=== PATIENT | male | born 1955 | race Caucasian/White ===

== ENCOUNTER 2024-04-06 08:32 | Day surgery (SDC) | payer MEDICARE, OTHER ==
[~2024-04-06] VITALS: Ht 172.7 cm; Wt 90.0 kg
--- NOTE | ~2024-04-06 | OR ---
[facility] [place] [facility] [address], [place] [address] Draft DATE OF OPERATION: 04/06/2024 SURGEON: Jun Joseph MD PREOPERATIVE DIAGNOSIS: Medial meniscus tear, right knee. POSTOPERATIVE DIAGNOSIS: Medial meniscus tear, right knee. PROCEDURE: Extensive chondrocalcinosis, right knee. PROCEDURE PERFORMED: Right knee arthroscopy with debridement of medial meniscus. CODING SPEC: Zee Gunter PA-C. Zee was present and critical for all portions of procedure. ANESTHESIA: General. BLOOD LOSS: Minimal. BRIEF HISTORY: Kayla is a 68-year-old gentleman with pain and locking in his knee. MRI was consistent with significant medial meniscus tear. Risks, benefits, and alternatives were discussed with him and he elected to proceed. Once consent was obtained, he was taken to the operating room after adequate anesthesia. He was placed on the operating room table. All downside pressure points were well padded. The left leg was flexed, abducted and externally rotated on a well-padded leg acosta. The right was placed in well-padded proximal thigh leg acosta. The leg was then prepped and draped in a standard sterile fashion. The portals were injected with 0.25% Marcaine with epinephrine. Standard inferolateral and superolateral portals were made and the scope was introduced into the knee. ARTHROSCOPIC FINDINGS,: Moderate synovitis was noted throughout the knee. There was extensive heavy PATIENT NAME: KAYLA RIOS OPERATIVE REPORT DATE OF : 53 REPORT #: [id number] PHYSICIAN: JUN JOSEPH MD PCP: YANN SALDIVAR MD REPORT IS CONFIDENTIAL AND NOT TO BE RELEASED WITHOUT AUTHORIZATION [facility] [place] [facility] [address], [place] [address] Draft chondrocalcinosis investing all of the cartilaginous surfaces as well as most of the synovium. The patella showed grade 3 to small area of grade 4, chondromalacia of the trochlea showed grade 2. Medial and lateral gutters were clear. Lateral compartment was clear. ACL was intact, but again with heavy chondrocalcinosis. The medial compartment showed grade 2 with one grade 4 flap of cartilage in the midportion of the medial femoral condyle. The tibia showed grade 2 chondromalacia. There was an extensive complex tear of the medial meniscus from the posterior horn all the way around to the mid body. DESCRIPTION OF PROCEDURE: Straight and curved biters were used to trim the meniscus tear back to a stable rim. This was then smoothed using shaver and all debris was evacuated. The small flap on the medial femoral condyle was also debrided. The scope was withdrawn and portals were closed with 3-0 nylon. The knee was injected with 60 mg Toradol at the end of the case. The wounds were then dressed with Adaptic, ABD, and Jose wrap. He tolerated the procedure well. All sponge, needle, and instrument counts were correct. Jun Joseph MD BA/MODL /[id number] Copies: ~ PATIENT NAME: KAYLA RIOS OPERATIVE REPORT DATE OF : 53 REPORT #: [id number] PHYSICIAN: JUN JOSEPH MD PCP: YANN SALDIVAR MD REPORT IS CONFIDENTIAL AND NOT TO BE RELEASED WITHOUT AUTHORIZATION
[~2024-04-06 08:32] MED LIST: ATORVASTATIN CA10 MG PO; CEFAZOLIN SODIUM 2 GM/20 ML SYR IV SCH; CINNAMON500 MG PO; DEXAMETHASONE SOD PHOS 4 MG/ML VIAL ONE; DICLOFENAC SODI50 MG PO; ESSENTIAL DAIL1 EACH PO; FAMOTIDINE 20 MG/ 2 ML VIAL ONE; FISH OIL300 MG PO; FLOMAX0.4 MG PO; GINGER250 MG PO; HYDROCODON-ACE1 EA10 PO; IBLOOD GLUCOSE TEST STRIP 1 EA TEST VI PRN; KETOROLAC TROMETHAMINE 30 MG/ML VIAL ONE; LACTATED RINGER'S 1,000 ML IV ONE; LACTATED RINGER'S 1,000 ML IV SCH; LIDOCAINE HCL 1% 5 ML SDV INJ ONE; LITHATE20 MG PO; METOCLOPRAMIDE HCL 10 MG/2 ML SDV IV PRN; METOCLOPRAMIDE HCL 10 MG/2 ML SDV ONE; MIDAZOLAM HCL 2 MG/2 ML VIAL ONE; MORPHINE SULFATE 10 MG/ML VIAL IV PRN; NALOXONE HCL 0.4 MG SYR IV PRN; NORCO 5-325 TA1 EACH PO; PROCHLORPERAZINE EDISYLATE 10 MG/2 ML VIAL IV PRN; PROZAC40 MG PO; TOPAMAX25 MG PO; TRANEXAMIC ACID 2,000 MG in SODIUM CHLORIDE 0.9% 100 ML IV SCH; TURMERIC500 M2 PO; VITAMIN B COMP1 EAC1; VITAMIN B-1250 MCG PO; VITAMIN D325 MC2 PO; VITAMIN D5000 UNIT PO; VOLTAREN ARTHRI20 GM; ZINC50 MG; droPERidol 5 MG/2 ML VIAL IV PRN; fentaNYL citrate 100 MCG/2 ML VIAL ONE; fentaNYL citrate 50 MCG/ML SDV IV PRN; ondansetron HCL 4 MG/2 ML VIAL IV PRN; ondansetron HCL 4 MG/2 ML VIAL ONE; propofoL 200 MG/20 ML VIAL ONE
[2024-04-06 08:54] VITALS: BP 122/61
[2024-04-06] MEDS ORDERED: BREYNA 80-4.510.3 GM IH (08:58)
[2024-04-06] MEDS ORDERED: PHENTERMINE HCL30 MG PO (08:59)
[2024-04-06] MEDS ORDERED: KETOROLAC TROMETHAMINE 30 MG/ML VIAL ONE (09:22)
[2024-04-06] MEDS ORDERED: HYDROCODONE/ACETA 5/325 TAB PO PRN (10:15)
[2024-04-06] MEDS ORDERED: CELECOXIB200 MG PO (10:29)
[2024-04-06] MEDS ORDERED: HYDROCODON-ACE1 EA10 PO (10:29)
--- NOTE | 2024-04-06 10:38 | NUR ---
04/06/24 Susanna Ta 1028 PT TO PACU SLEEPING ORAL AIRWAY IN PLACE. O2 VIA MASK FOGGING NOTED IN MASK.
--- NOTE | 2024-04-06 10:55 | NUR ---
JANIS 1055-PT BACK TO ROOM FROM PACU ON RA. RECEIVED REPORT FROM FLAVIO ZEPEDA. DENIES PAIN, ICE PACK IN PLACE ON LEFT KNEE. PROVIDED PT WITH CRACKERS AND WATER. NO OTHER NEEDS AT THIS TIME. AT BEDSIDE. CALL LIGHT WITHIN REACH.
[2024-04-06 10:56] VITALS: BP 110/60
[2024-04-06 11:57] VITALS: BP 115/60
--- NOTE | 2024-04-06 12:00 | NUR ---
IN PT ROOM FOR PAIN ASSESSMENT. PT REPORTS PAIN IS 1/10 AT THIS TIME AND TOLERABLE. PT STATES NO NEED FOR PRN PAIN MED AT THIS TIME. PT STATES NEED TO URINE VOID. PT UP TO BEDSIDE AND REPORTS NO DIZZINESS/NAUSEA. PT AMBULATES TO RESTROOM W/THIS RN STANDBY ASSIST FOR URINE VOID OF 225 ML. PT BACK TO BED AND GETTING DRESSED AT THIS TIME W/ ASSISTANCE. CALL LIGHT WITHIN REACH.
--- NOTE | 2024-04-06 12:25 | NUR ---
IN PT ROOM FOR DISCHARGE EDUCATION. PT REPORTS STATES VERBAL UNDERSTANDING AND NO FURTHER QUESTIONS AT THIS TIME. PT OFF OF UNIT VIA WC TO PASSENGER SIDE OF VEHICLE. ALL BELONGINGS IN PT POSSESSION, FRESH ICE PACK PROVIDED. PT REPORTS NO FURTHER QUESTIONS OR NEEDS AT THIS TIME.
[2024-04-06] MEDS ORDERED: CELECOXIB 200 MG CAP PO SCH (17:00)
== END 2024-04-06 12:30 | disposition home or self-care (01) ==
LOC: DS 08:32
PROVIDERS: ATTEND Specialist
PROC: 0SBC4ZZ Excision of Right Knee Joint, Percutaneous Endoscopic Approach (ICD-10-PCS; principal; 2024-04-06 10:45)
DX: S83.231A Complex tear of medial meniscus, current injury, right knee, initial encounter (principal); M11.261 Other chondrocalcinosis, right knee; M65.9 Synovitis and tenosynovitis, unspecified; E78.00 Pure hypercholesterolemia, unspecified; Z79.1 Long term (current) use of non-steroidal anti-inflammatories (NSAID); Z79.899 Other long term (current) drug therapy; Z90.49 Acquired absence of other specified parts of digestive tract; X58.XXXA Exposure to other specified factors, initial encounter
CPT/HCPCS: J0690; J1100; J1885; J2250; J2405; J2704; J2765; J3010; J7121

== ENCOUNTER 2025-02-15 05:30 | Day surgery (SDC) | payer MEDICARE, OTHER ==
[~2025-02-15] VITALS: Ht 172.7 cm; Wt 99.0 kg
[~2025-02-15 05:30] MED LIST changes: +ALLOPURINOL300 MG PO; +BREYNA 80-4.510.3 GM IH; -CEFAZOLIN SODIUM 2 GM/20 ML SYR IV SCH; +CELECOXIB200 MG PO; -DEXAMETHASONE SOD PHOS 4 MG/ML VIAL ONE; -FAMOTIDINE 20 MG/ 2 ML VIAL ONE; +GINGER ROOT550 MG PO; -GINGER250 MG PO; -IBLOOD GLUCOSE TEST STRIP 1 EA TEST VI PRN; -KETOROLAC TROMETHAMINE 30 MG/ML VIAL ONE; -LACTATED RINGER'S 1,000 ML IV ONE; -LIDOCAINE HCL 1% 5 ML SDV INJ ONE; -METOCLOPRAMIDE HCL 10 MG/2 ML SDV IV PRN; -METOCLOPRAMIDE HCL 10 MG/2 ML SDV ONE; -MIDAZOLAM HCL 2 MG/2 ML VIAL ONE; -MORPHINE SULFATE 10 MG/ML VIAL IV PRN; -NALOXONE HCL 0.4 MG SYR IV PRN; +PHENTERMINE HCL30 MG PO; -PROCHLORPERAZINE EDISYLATE 10 MG/2 ML VIAL IV PRN; +SUPER B-50 COM1 EAC2 PO; -TRANEXAMIC ACID 2,000 MG in SODIUM CHLORIDE 0.9% 100 ML IV SCH; -droPERidol 5 MG/2 ML VIAL IV PRN; -fentaNYL citrate 100 MCG/2 ML VIAL ONE; -fentaNYL citrate 50 MCG/ML SDV IV PRN; -ondansetron HCL 4 MG/2 ML VIAL IV PRN; -ondansetron HCL 4 MG/2 ML VIAL ONE; -propofoL 200 MG/20 ML VIAL ONE
[2025-02-15 06:02] VITALS: BP 120/63
[2025-02-15] MEDS ORDERED: SODIUM CHLORIDE 0.9% 500 ML IV ONE (06:18)
[2025-02-15] MEDS ORDERED: Ropivacaine HCl 20 MG/10 ML AMP ONE (06:18)
[2025-02-15] MEDS ORDERED: LIDOCAINE HCL 2% 5 ML SDV ONE (06:31)
[2025-02-15] MEDS ORDERED: fentaNYL citrate 100 MCG/2 ML VIAL ONE (06:31)
[2025-02-15] MEDS ORDERED: MIDAZOLAM HCL 2 MG/2 ML VIAL ONE (06:33)
[2025-02-15] MEDS ORDERED: Ropivacaine HCl 0.5% 30 ML VIAL ONE (06:34)
[2025-02-15] MEDS ORDERED: SODIUM CHLORIDE 0.9% 20 ML IV ONE (06:34)
[2025-02-15] MEDS ORDERED: DEXAMETHASONE SOD PHOS 10 MG/ML VIAL ONE (06:42)
[2025-02-15] MEDS ORDERED: TRANEXAMIC ACID IN NACL,ISO-OS 1,000 MG/100 ML PIGGYBACK IV SCH ×2 (07:00→10:16)
[2025-02-15] MEDS ORDERED: ROPIVACAINE IN 0.9% SOD CHL/PF 545 ML ELS.PMP.HR IRRIGATION SCH (07:00)
[2025-02-15] MEDS ORDERED: CEFAZOLIN SODIUM 2 GM/20 ML SYR IV SCH ×2 (07:00→15:00)
[2025-02-15] MEDS ORDERED: GABAPENTIN 600 MG TAB PO SCH (07:00)
[2025-02-15] MEDS ORDERED: INTRA-ARTICULAR ANALGESIC INJECTION XX SCH (07:00)
[2025-02-15] MEDS ORDERED: LIDOCAINE HCL 1% 5 ML SDV INJ ONE (07:00)
[2025-02-15] MEDS ORDERED: PANTOPRAZOLE SODIUM 40 MG TABEC PO SCH (07:00)
[2025-02-15] MEDS ORDERED: OXYCODONE HCL 5 MG TAB PO SCH (07:00)
[2025-02-15] MEDS ORDERED: IBLOOD GLUCOSE TEST STRIP 1 EA TEST VI PRN ×2 (07:00→07:45)
[2025-02-15] MEDS ORDERED: KETOROLAC TROMETHAMINE 30 MG/ML VIAL IV PRN (07:30)
[2025-02-15] MEDS ORDERED: OXYCODONE HCL 5 MG TAB PO PRN (07:30)
--- NOTE | 2025-02-15 07:34 | NUR ---
PT NOT AVAILABLE FOR VISIT. FAMILY MEMBER IN ROOM STATED NO IMMEDIATE NEEDS. NO OVERT SIGNS OF ANXIETY, OVERALL GOOD SPIRITS. URBAN REDEVELOPMENT SPECIALIST PROVIDED SUPPORTIVE PRESENCE, HOSPITALITY, PRAYER, FACILITATED INTERACTION WITH THERAPY ANIMAL. FAMILY MEMBER EXPRESSED GRATITUDE.
[2025-02-15] MEDS ORDERED: PROCHLORPERAZINE EDISYLATE 10 MG/2 ML VIAL IV PRN (07:45)
[2025-02-15] MEDS ORDERED: fentaNYL citrate 50 MCG/ML SDV IV PRN (07:45)
[2025-02-15] MEDS ORDERED: HYDROmorphone HCL 1 MG/ML SYR IV PRN (07:45)
[2025-02-15] MEDS ORDERED: NALOXONE HCL 0.4 MG SYR IV PRN (07:45)
[2025-02-15] MEDS ORDERED: LACTATED RINGER'S 1,000 ML IV ONE (08:31)
[2025-02-15] MEDS ORDERED: CEFUROXIME250 MG PO (08:37)
[2025-02-15] MEDS ORDERED: DICLOFENAC SODI75 MG PO (08:37)
[2025-02-15] MEDS ORDERED: ASPIRIN325 MG PO (08:37)
[2025-02-15] MEDS ORDERED: SENNA LAX8.6 MG PO (08:38)
[2025-02-15] MEDS ORDERED: OXYCODONE HCL5 M1 PO (08:38)
[2025-02-15] MEDS ORDERED: ACETAMINOPHEN500 MG PO (08:38)
[2025-02-15] MEDS ORDERED: GABAPENTIN300 MG PO (08:38)
--- NOTE | 2025-02-15 08:57 | NUR ---
02/15/25 0857 Joanna Oleary LE 0842: PT ARRIVES TO PACU. HE IS EASILY AROUSABLE TO STIMULI. HEEL PROTECTORS PUT IN PLACE BILATERALLY. LE 0850: PT AWAKES TO QUESTIONS AND TACTILE STIMULI. HE DENIES PAIN OR NAUSEA. CAN WIGGLE THE LEFT FOOT, NO MOVEMENT ON THE RIGHT. LE 0855: XRAY AT THE BEDSIDE. LE 0857: CRYO CUFF APPLIED TO RIGHT KNEE.
[2025-02-15] MEDS ORDERED: ASPIRIN 325 MG TAB PO SCH (09:00)
[2025-02-15 09:25] VITALS: BP 117/58
[2025-02-15] MEDS ORDERED: ACETAMINOPHEN 1,000 MG/100 ML VIAL IV ONE (10:00)
[2025-02-15] MEDS ORDERED: LORazepam 2 MG/ML VIAL IV ONE (10:30)
[2025-02-15 10:37] VITALS: BP 114/57
--- NOTE | 2025-02-15 10:44 | NUR ---
LE 0925-PT BACK TO ROOM FROM PACU ON RA. RECEIVED REPORT FROM JAYLYN ZEPEDA. PT IS AWAKE. RESP EVEN AND UNLABORED. RATES PAIN 1/10. DENIES NAUSEA. CRYO CUFF IN PLACE AND RUNNING. ON-Q PUMP SET AT 4. PT IS DRINKING WATER AND EATING CRACKERS AND PUDDING. IN ROOM. CALL LIGHT WITHIN REACH. JANIS 0941-PT RATES PAIN 4/10. PAIN MEDICATION GIVEN PER EMAR. CALL LIGHT WITHIN REACH.
--- NOTE | 2025-02-15 11:21 | NUR ---
LE 0952-PT STATES PAIN IS INCREASING. RATES PAIN NOW 11/28. PHONE CALL INTO OR 2. VO PER ARNULFO WEINBERG TURN ON-Q PUMP TO 6. LE 0956-PHONE CALL TO OR 2. VO PER YULISSA CARDOSO FOR IV TYLENOL. LE 1005-IV TYLENOL GIVEN PER EMAR.
--- NOTE | 2025-02-15 11:26 | NUR ---
LE 1017-PT STATES PAIN IS NOW A 6/10. ASKING QUESTIONS ABOUT HOW HE IS GOING TO WALK? ARNULFO WEINBERG IN ROOM WITH PT. VO ATIVAN 0.25MG NOW. LE 1034-ATIVAN GIVEN PER EMAR. FAMILY IN ROOM. CALL LIGHT WITHIN REACH.
--- NOTE | 2025-02-15 11:33 | NUR ---
LE 1037-PT LAYING IN BED. RESP EVEN AND UNLABORED. RATES PAIN 6/10. ON-Q PUMP SET AT 6. CRYO CUFF IN PLACE AND RUNNING. PT STATES WOULD LIKE TO TAKE A NAP. AT BEDSIDE. CALL LIGHT WITHIN REACH.
--- NOTE | 2025-02-15 11:39 | NUR ---
LE 1136-PT RESTING IN BED WITH EYES CLOSED. RESP EVEN AND UNLABORED. NO SIGNS OF DISTRESS. CALL LIGHT WITHIN REACH. AT BEDSIDE.
[2025-02-15 12:26] VITALS: BP 107/56
--- NOTE | 2025-02-15 12:35 | NUR ---
PT LAYING IN BED WITH EYES CLOSED. OPENS THEM TO VERBAL STIMULI. RESP EVEN AND UNLABORED. RATES PAIN 3/10 BUT WHEN MOVES KNEE RATES PAIN 8-9/10. WOULD LIKE PAIN MEDICATION. ON-Q PUMP SET AT 6. CRYO CUFF IN PLACE AND RUNNING. LUNCH ORDERED. NO OTHER NEEDS AT THIS TIME. CALL LIGHT WITHIN REACH.
--- NOTE | 2025-02-15 14:49 | NUR ---
JANIS 1335-PHYSICAL THERAPY IN WITH PT.
--- NOTE | 2025-02-15 14:50 | NUR ---
1440-PT BACK FROM PHYSICAL THERAPY.
[2025-02-15 14:53] VITALS: BP 111/55
[2025-02-15] MEDS ORDERED: ACETAMINOPHEN 500 MG TAB PO SCH (15:00)
[2025-02-15] MEDS ORDERED: GABAPENTIN 300 MG CAP PO SCH (15:00)
--- NOTE | 2025-02-15 15:46 | NUR ---
JANIS 1453-PT SITTING AT BEDSIDE. RESP EVEN AND UNLABORED. RATES 1/10. DENIES NAUSEA. DRESSING IS CLEAN, DRY, AND INTACT. ON-Q PUMP SET AT 6. PT READAY TO GO HOME. PT WILL GET DRESSED. IN ROOM TO HELP PT. CALL LIGHT WITHIN REACH.
--- NOTE | 2025-02-15 15:47 | NUR ---
LE 1515-WENT OVER DISCHARGE INSTRUCTIONS WITH PT AND . WENT OVER ALL POSTOP MEDICATIONS. ALL QUESTIONS ANSWERED. ON-Q PUMP DECREASED TO 4. LE 1523-PT AMBULATES WITH WALKER TO WHEELCHAIR AND RIDE PROVIDED TO FRONT OF HOSPITAL WHERE WAS WAITING WITH THE CAR.
[2025-02-15] MEDS ORDERED: SENNOSIDES 1 TAB PO SCH (21:00)
[2025-02-16] MEDS ORDERED: DICLOFENAC SOD 75 MG TABEC PO SCH (08:00)
--- NOTE | 2025-02-16 08:35 | OR ---
[facility] [address] [place] [place], [place] [address] Signed DATE OF OPERATION: 02/15/2025 SURGEON: Jun Joseph MD PREOPERATIVE DIAGNOSIS: Severe degenerative joint disease, right knee. POSTOPERATIVE DIAGNOSIS: Severe degenerative joint disease, right knee. PROCEDURE PERFORMED: Right total knee arthroplasty with Kevon. DIRECTOR OF LOSS PREVENTION: Zee Gunter PA-C. Zee was present and critical for all portions of procedure. ANESTHESIA: Spinal. BLOOD LOSS: 173 mL. TOURNIQUET TIME: Zero. IMPLANTS: Lev Triathlon size 5, 10 mm polyethylene, 35 mm patella. BRIEF HISTORY: Kayla is a 69-year-old gentleman with progressive worsening. He failed nonoperative treatment as well as a knee arthroscopy. Risks, benefits, and alternatives were discussed with him of knee replacement. He wished to proceed. DESCRIPTION OF PROCEDURE: Once consent was obtained, he was taken to the operating room. After adequate anesthesia, he was placed on the OR table with a hip bump. After adequate anesthesia, the right leg was prepped and draped in a standard sterile fashion. The knee was approached through standard anterior midline incision, carried through skin and subcutaneous tissue. Skin flaps were developed medially and laterally. A low mid Electronically Signed By: JUN JOSEPH MD 02/16/25 0835 PATIENT NAME: KAYLA RIOS OPERATIVE REPORT DATE OF : 53 REPORT #: [id number] PHYSICIAN: JUN JOSEPH MD PCP: DEB KIM MD REPORT IS CONFIDENTIAL AND NOT TO BE RELEASED WITHOUT AUTHORIZATION [facility] [address] [place], [place] [address] Signed vastus arthrotomy was performed. The infrapatellar fat pad was excised. The MCL was elevated as a sleeve around to the mid medial position. The anterior horns of menisci were transected as was the ACL. The computer navigation array was then placed in the distal femur and proximal tibia. The leg was registered with the computer as were the fine anatomic points of the knee. Varus and valgus testing was undertaken and slight varus was added to the tibia as well as moving the femur a little bit. Once this was completed, the robot was brought in. The four straight cuts and two angled cuts were made with care taken to protect the patellar tendon and MCL. The bony remnants were removed as were any remaining osteophytes. The posterior osteophytes removed off of the femur, but no release was performed. The trials were then positioned. The knee was taken from 0-140 degrees of flexion with good stability throughout. The patella tracked well. The patella was then cut, sized, and drilled for a 35 mm patella. The distal femoral drill holes were completed. The proximal tibia was finished using the keel punch followed by the drills. Once this was completed, the prosthesis was obtained. The tibia was impacted into position first until it was seated flush with the bone cut. The polyethylene was snapped into position and the femur was impacted. The leg was then extended and loaded. Patella was clamped into position until it was seated flush. The patellar tracking was again checked and found to be good. The knee was then irrigated with 1 L of Surgiphor followed by normal saline. The periarticular soft tissues were injected with 100 mL ropivacaine Toradol mixture. The On-Q pain pump was percutaneously placed into the adductor canal from the suprapatellar pouch. The arthrotomy was then closed using a combination of #2 FiberWire, #2 Stratafix. Subcutaneous tissue was closed using 0 Stratafix and the skin with 3-0. The wound was sealed with LiquiBand, Steri-Strips and dressed with Acticoat-7 dressing, ABDs and Jose wrap. He tolerated the procedure well. All sponge, needle, and instrument counts were correct. Jun Joseph MD BA/MODL /[id number] Copies: ~ Electronically Signed By: JUN JOSEPH MD 02/16/25 0835 PATIENT NAME: KAYLA RIOS OPERATIVE REPORT DATE OF : 53 REPORT #: [id number] PHYSICIAN: JUN JOSEPH MD PCP: DEB KIM MD REPORT IS CONFIDENTIAL AND NOT TO BE RELEASED WITHOUT AUTHORIZATION
== END 2025-02-15 15:20 | disposition home or self-care (01) ==
LOC: DS 05:30
PROVIDERS: ATTEND Specialist
PROC: 0SRC0JA Replacement of Right Knee Joint with Synthetic Substitute, Uncemented, Open Approach (ICD-10-PCS; principal; 2025-02-15 07:00)
DX: M17.11 Unilateral primary osteoarthritis, right knee (principal); G89.18 Other acute postprocedural pain; Z79.899 Other long term (current) drug therapy
CPT/HCPCS: 01402; 64447; 64450; 73560; 76942; 97110; 97116; 97162; 97530; A9270; C1713; C1776; J0131; J0690; J1100; J2003; J2060; J2250; J2405; J2704; J2795; J3010; J7040; J7121; J7999